=== PATIENT | female | born 1950 | race Caucasian/White ===

== ENCOUNTER 2017-01-01 18:34 | Emergency (ER) | payer MEDICARE, OTHER ==
[~2017-01-01 18:34] MED LIST: ALBUTEROL MININEB NEB; ASPIRIN81 M1 PO; CLEOCIN HCL300 M1 PO; DOXYCYCLINE HY100 M1 PO; DULERA 100 MCG/13 GM IH; FLEXERIL10 MG PO; HYDROCODON-ACE1 EAC4 PO; HYDROCODON-ACE1 EAC5 PO; IPRATR-ALBUTEROL3 ML IH; LORTAB 10-5001 EACH PO; LORTAB 10/500 T1 TAB PO; LORTAB 5/500 TA1 TA1 PO; LORTAB 7.5-5001 TAB PO; MEDROL DOSEPAK4 MG DOB; METFORMIN; NASACORT AQ16.5 GM; NASONEX17 GM; NEURONTIN PO; OXYCODONE-APAP1 EAC4 PO; PREDNISONE PO; PROAIR HFA8.5 GM IH; ROBAXIN 750750 MG PO; ROBITUSSIN A-C-S1 ML PO; TESSALON200 MG PO; TUSSIONEX; VOLTAREN50 MG PO; ZOVIRAX800 MG PO; ZPAK
== END 2017-01-01 19:52 | disposition home or self-care (01) ==
LOC: SED 18:34
DX: S91.011A Laceration without foreign body, right ankle, initial encounter (principal); E11.9 Type 2 diabetes mellitus without complications; J44.9 Chronic obstructive pulmonary disease, unspecified; F41.9 Anxiety disorder, unspecified; F17.210 Nicotine dependence, cigarettes, uncomplicated; Z88.0 Allergy status to penicillin; Z88.1 Allergy status to other antibiotic agents; Z91.041 Radiographic dye allergy status; W20.8XXA Other cause of strike by thrown, projected or falling object, initial encounter; Y92.009 Unspecified place in unspecified non-institutional (private) residence as the place of occurrence of the external cause
CPT/HCPCS: 12002; 99283

== ENCOUNTER 2017-01-24 18:15 | Emergency (ER) | payer MEDICARE, OTHER ==
--- NOTE | ~2017-01-24 | CR21 ---
[facility] A Service of [facility] RADIOLOGY TEXT RESULTS PATIENT: PHILOMENA TATUM LOCATION: SED : 52 UNIT #: [id number] AGE: [address]: Monroe Torrez MD SEX: F ORDER DR: [id number] [address] [address] [id number] E MR#: [id number] Acc #: [id number] NAME: PHILOMENA TATUM : 1950 SEX: F STUDY DATE/TIME: 01/24/2017 18:44 UNIT: SED ROOM: STUDY DESCRIPTION: CR Ankle Min 3 Views Rt Attending Physician: Monroe Torrez M.D. Ordering Physician: Za Leos M.D. Primary Care Physician: Camilla Hein A.P.R.N. MEDICAL IMAGING REPORT This report is preliminary unless electronic signature is present. EXAM Three views right ankle 01/24/2017 HISTORY 67-year-old female with right ankle cellulitis, redness and swelling after cutting with glass approximately 3 weeks ago. COMPARISON None. FINDINGS Linear air density is seen along the surface of the right ankle posterolaterally thought to represent laceration defect. No retained radiopaque foreign body is seen in the soft tissues. Right ankle soft tissue swelling is demonstrated posterolaterally near the laceration site. No acute osseous abnormalities are identified. IMPRESSION Laceration defect along the lateral and posterior margin of the right ankle without evidence of retained radiopaque foreign body or acute osseous abnormality. Right ankle soft tissue swelling greatest laterally. Dictated by... Jessica Nowak M.D. THIS IS AN ELECTRONICALLY VERIFIED REPORT Jessica Nowak M.D. at 01/25/2017 10:06 AM SATURNINO/terry TD: 01/25/2017 06:04 JOB #: [id number] [facility] A Service of [facility] RADIOLOGY TEXT RESULTS PATIENT: PH[facility]OMENA TATUM [id number] UNIT #: [id number] AGE: [address]: Monroe Torrez MD SEX: F ORDER DR: MEDICAL IMAGING REPORT Page 1 of 1
[2017-01-24 19:16] LABS: BASOPHIL# 0.1 X10e3 (0-0.3); BASOPHIL% 1.3 % (0-2.5); EOSINOPHIL# 0.2 X10e3 (0-0.7); EOSINOPHIL% 2.2 % (0.0-7.0); HEMATOCRIT 40.8 % (35.0-45.0); HEMOGLOBIN 14.2 gm/dL (12.0-16.0); LYMPHOCYTE# 1.7 X10e3 (1.0-3.5); LYMPHOCYTE% 24.7 % (17.0-45.0); MEAN CELL VOLUME 89.4 FL (83-96); MEAN CORPUSCULAR HGB CONC 34.7 g/dL (30-36); MEAN PLATELET VOLUME 8.8 FL (6.5-11.5); MONOCYTE# 0.6 X10e3 (0-1.0); MONOCYTE% 8.4 % (3.0-12.0); NEUTROPHIL# 4.3 X10e3 (1.5-7.1); NEUTROPHIL% 63.4 % (40-75); PLATELET COUNT 274 X10e3 (140-420); RED BLOOD COUNT 4.57 X10e (3.90-5.30); RED CELL DISTRIBUTION WIDTH 12.7 % (11.0-15.5); WHITE BLOOD COUNT 6.8 X10e3 (4.0-10.5)
[2017-01-24 19:18] LABS: DIFF IND NO
[2017-01-24 19:31] LABS: BUN/CREATININE RATIO 18.75; CALCIUM SERUM 9.1 mg/dL (8.4-10.2); CREATININE SERUM 0.8 mg/dL (0.6-1.4); GLOM FILT RATE Estimated 76.9 mL/min (>60); POTASSIUM 3.7 mmol/L (3.5-5.1)
== END 2017-01-24 20:15 | disposition home or self-care (01) ==
LOC: SED 18:15
PROVIDERS: Student in an Organized Health Care Education/Training Program
DX: L03.115 Cellulitis of right lower limb (principal); E11.9 Type 2 diabetes mellitus without complications; J45.909 Unspecified asthma, uncomplicated; F17.200 Nicotine dependence, unspecified, uncomplicated; Z88.0 Allergy status to penicillin; Z91.041 Radiographic dye allergy status; Z88.8 Allergy status to other drugs, medicaments and biological substances
CPT/HCPCS: 73610; 80048; 85025; 87070; 87077; 87186; 87205; 99283

== ENCOUNTER 2017-03-21 14:17 | Emergency (ER) | payer MEDICARE, OTHER | END 2017-03-21 15:10 | disposition home or self-care (01) | LOC: SED 14:17 | DX: B02.29 Other postherpetic nervous system involvement (principal); I10 Essential (primary) hypertension; F41.9 Anxiety disorder, unspecified; J44.9 Chronic obstructive pulmonary disease, unspecified; E66.9 Obesity, unspecified; F17.210 Nicotine dependence, cigarettes, uncomplicated; Z79.899 Other long term (current) drug therapy; Z88.0 Allergy status to penicillin; Z88.1 Allergy status to other antibiotic agents; Z91.041 Radiographic dye allergy status | CPT/HCPCS: 99282 ==

== ENCOUNTER 2017-04-22 00:04 | Emergency (ER) | payer MEDICARE, OTHER ==
[~2017-04-22] VITALS: Ht 165.1 cm; Wt 90.7 kg
[2017-04-22] MEDS ORDERED: NEURONTIN (00:16)
[2017-04-22] MEDS ORDERED: HYDROCODON-ACE1 EAC7 (00:16)
== END 2017-04-22 01:40 | disposition home or self-care (01) ==
LOC: SED 00:04
DX: B02.29 Other postherpetic nervous system involvement (principal); R03.0 Elevated blood-pressure reading, without diagnosis of hypertension; J44.9 Chronic obstructive pulmonary disease, unspecified; M54.9 Dorsalgia, unspecified; G89.29 Other chronic pain; F17.200 Nicotine dependence, unspecified, uncomplicated; Z88.0 Allergy status to penicillin; Z88.1 Allergy status to other antibiotic agents; Z91.041 Radiographic dye allergy status
CPT/HCPCS: 99284